=== PATIENT | female | born 1995 | race Hispanic/Latino ===

== ENCOUNTER 2025-04-02 12:38 | Emergency (ER) | payer OTHER ==
[~2025-04-02] VITALS: Ht 160 cm; Wt 121.2 kg
[2025-04-02] MEDS ORDERED: SODIUM CHLORIDE 0.9% 1000ML 1,000 ML IV SCH (14:00)
[2025-04-02] MEDS ORDERED: ONDANSETRON HCL INJ 2MG/ML 2ML 2 MG/ML VIAL IV PRN (14:00)
[2025-04-02] MEDS: ASPIRIN 325 MG TAB PO ONE (14:58)
[2025-04-02] MEDS: CLOPIDOGREL BISULFATE 75 MG TAB PO ONE (14:58)
[2025-04-02 15:49] VITALS: PULSE 77; RESP 18; O2SAT 99
[2025-04-02 16:36] VITALS: PULSE 79; RESP 18; TEMP 98.9; O2SAT 99
== END 2025-04-02 17:12 | disposition other institution (70) ==
LOC: FSED 13:00
DX: R20.2 Paresthesia of skin (principal); G45.9 Transient cerebral ischemic attack, unspecified; R03.0 Elevated blood-pressure reading, without diagnosis of hypertension; R45.82 Worries; R94.31 Abnormal electrocardiogram [ECG] [EKG]
CPT/HCPCS: 70450; 80053; 81003; 81025; 84484; 85025; 93005; 94799; 99282